=== PATIENT | female | born 1950 | race Caucasian/White ===

== ENCOUNTER 2016-02-29 15:22 | Inpatient (IN) | payer MEDICARE ==
[2016-02-29] MEDS ORDERED: ASPIRIN 81 MG CHEW PO STA (16:27)
[2016-02-29] MEDS ORDERED: NITROGLYCERIN OINT 1 INCH/GM PACKET TOPICAL STA (16:27)
[2016-02-29] MEDS ORDERED: PANTOPRAZOLE 40 MG/10 ML VIAL IVP STA (16:28)
[2016-02-29 17:04] LABS: Basophils # (A) 0.1 k/uL (0-0.2); Basophils % (A) 1 %; CH 30.8; Eosinophils # (A) 0.1 k/uL (0-0.7); Eosinophils % (A) 1 %; HCT 44.4 % (34.0-46.0); HDW 2.27; HGB 14.4 gm/dL (11.4-16.0); Luc % (Auto) 1; Lymphocytes # (A) 2.3 k/uL (1.0-4.8); Lymphocytes % (A) 25 %; MCH 30.4 pg (25.0-35.0); MCHC 32.5 g/dL (31.0-37.0); MCV 93.7 fL (80.0-100.0); Mean Platelet Volume 7.8; Monocytes # (A) 0.5 k/uL (0-1.0); Monocytes % (A) 5 %; Neutrophils # (A) 6.2 k/uL (1.3-7.7); Neutrophils % (A) 67 %; RBC 4.74 m/uL (3.80-5.40); RDW 13.4 % (11.5-15.5); WBC 9.2 k/uL (3.8-10.6)
[2016-02-29 17:15] LABS: ALT 31 U/L (9-52); AST 22 U/L (14-36); Alkaline Phosphatase 93 U/L (38-126); Anion Gap 14 mmol/L; Blood Urea Nitrogen 14 mg/dL (7-17); Calcium 9.8 mg/dL (8.4-10.2); Carbon Dioxide 25 mmol/L (22-30); Chloride 103 mmol/L (98-107); Glucose 94 mg/dL (74-99); Magnesium 1.9 mg/dL (1.6-2.3); Non-African American GFR(MDRD) >60 (>60 ml/min/1.73 sqM); Potassium 4.4 mmol/L (3.5-5.1); Sodium 142 mmol/L (137-145); Total Bilirubin 0.8 mg/dL (0.2-1.3); Total Protein 8.1 g/dL (6.3-8.2)
[2016-02-29 17:16] LABS: INR 1.1 (<1.1); Partial Thromboplastin Time 24.1 sec (22.0-30.0); Prothrombin Time 11.1 sec (9.0-12.0)
--- NOTE | 2016-02-29 17:22 | XR ---
EXAMINATION TYPE: XR chest 2V DATE OF EXAM: 02/29/2016 5:16 PM COMPARISON: NONE HISTORY: Chest pain TECHNIQUE: Frontal and lateral views of the chest are obtained. FINDINGS: Heart and mediastinum are within normal limits. Lungs are clear. Costophrenic angles are c lear. There are no hilar masses. There are chest leads. Bony thorax is intact. IMPRESSION: Normal chest.
[2016-02-29 17:25] LABS: Creatine Kinase 86 U/L (30-135)
[2016-02-29 17:37] LABS: Creatine Kinase MB 0.9 ng/mL (0.0-2.4); Troponin I <0.012 ng/mL (0.000-0.034)
--- NOTE | 2016-02-29 18:58 | ED ---
Chest Pain HPI - General Chief Complaint: Chest Pain Stated Complaint: Chest Pain Time Seen by Provider: 02/29/16 16:22 Source: patient Mode of arrival: wheelchair - History of Present Illness Initial Comments: This 65-year-old white female presents complaining of chest pain which is been present intermittently for one week. She describes as a pinprick like, heaviness in someone sitting on her chest type of sensation. It will last a few seconds up to 10 minutes and is nonexertional in nature. It will occasionally radiate to her left arm. She has had occasional mild shortness of breath. She denies any palpitations diaphoresis. She denies any leg pain or swelling, or history of DVT or PE. She was seen by her primary care physician today and sent in for some changes on her EKG and high blood pressure associated with the chest pain. She states that she has an occasional problem with swallowing with a history of gastroesophageal reflux disease. She has a history of hypertension in the past but is not on any medications currently for this. She does have a strong family history of cardiac disease. Her last stress test was approximately 3 years ago. No other complaints or modifying factors. - Related Data Home Medications Medication Instructions Recorded Confirmed Aspirin 325 - 650 mg PO DAILY PRN 06/11/13 02/29/16 Omeprazole [PriLOSEC] 20 mg PO DAILY PRN 02/29/16 02/29/16 Allergies Allergy/AdvReac Type Severity Reaction Status Date / Time alcohol Allergy Severe Swelling Verified 02/29/16 17:29 fentanyl Allergy Severe Nausea & Verified 02/29/16 17:29 Vomiting clarithromycin [From Biaxin] Allergy Unknown Unknown Verified 02/29/16 17:32 diazepam [From Valium] Allergy Unknown Unknown Verified 02/29/16 17:29 ANTIBIOTIC (UNKNOWN) Allergy Unknown Unknown Uncoded 02/29/16 17:32 EKG electrodes AdvReac Intermediate Rash/Hives Uncoded 06/11/13 08:40 Review of Systems ROS Statement: Those systems with pertinent positive or pertinent negative responses have been documented in the HPI. ROS Other: All systems not noted in ROS Statement are negative. Past Medical History Past Medical History: Chest Pain / Angina, GERD/Reflux, Hypertension Additional Past Medical History / Comment(s): palpitations, hx ulcer and hiatal hernia years ago History of Any Multi-Drug Resistant Organisms: None Reported Past Surgical History: Cholecystectomy Past Anesthesia/Blood Transfusion Reactions: Family History of Problems w/ Anesthesia, Postoperative Nausea & Vomiting (PONV) Past Psychological History: No Psychological Hx Reported Smoking Status: Former smoker Past Alcohol Use History: None Reported Past Drug Use History: None Reported General Exam - General Exam Comments Initial Comments: GENERAL: The patient is well nourished and well hydrated. VITAL SIGNS: Heart rate, blood pressure, respiratory rate reviewed as recorded in nurse's notes. EYES: Pupils are round and reactive. Extraocular movements are intact. No conjunctival / lid redness or swelling. ENT: No external evidence of injury, swelling, or ecchymosis. Airway is patent. Throat is clear. NECK: Nontender. No swelling or evidence of injury. No subcutaneous emphysema. Trachea is midline. No thyroid mass. HEART: Regular rate and rhythm. Good peripheral pulses. LUNGS/CHEST: Breath sounds clear and equal bilaterally. No rales, rhonchi, or wheezes. No ecchymosis, subcutaneous emphysema, or tenderness. ABDOMEN: Abdomen soft without tenderness. No palpable masses or organomegaly. No peritoneal signs. No abdominal wall swelling or ecchymosis. EXTREMITIES: No extremity tenderness. Normal muscle tone and function. No thoracolumbar tenderness. NEUROLOGIC: Sensation is grossly intact. Cranial nerve exam reveals face is symmetrical, tongue is midline, speech is clear. SKIN: No abrasions or ecchymosis is noted. No induration or masses noted. PSYCHIATRIC: Alert and oriented. Appropriate behavior and judgment. Course Vital Signs 02/29/16 02/29/16 15:48 18:53 Temperature 98.5 F Pulse Rate 67 60 Respiratory 18 20 Rate Blood Pressure 190/83 141/63 O2 Sat by Pulse 100 99 Oximetry Chest Pain MDM - MDM The patient was seen and examined. All diagnostics were reviewed. The EKG shows a normal sinus rhythm at a rate of 68. There is no acute ST-T wave changes identified. The AK interval is 164, QRS duration is 94, QTC intervals 440. A chest x-ray does not show any acute process per radiology. The laboratory is all essentially within normal limits. The patient is in no distress on recheck. She receives aspirin as well as some Nitropaste. It is felt as though she benefit from admission to the hospital for further Cardiologic workup and to rule out acute coronary syndrome. She is agreeable. Case will be discussed with internal medicine in the near future and patient will be admitted to observation. Disposition Clinical Impression: Chest pain, Unstable angina pectoris, Hypertension Disposition: ADMITTED IP TO THIS HOSP Condition: Good Time of Disposition: 18:58 Decision Date: 02/29/16 Decision Time: 18:58
[2016-02-29] MEDS ORDERED: HEPARIN SODIUM,PORCINE 5,000 UNIT/ML 1 ML VIAL IV PRN (18:59)
[2016-02-29] MEDS ORDERED: HEPARIN SODIUM,PORCINE 5,000 UNIT/ML 1 ML VIAL IV ONE (18:59)
[2016-02-29] MEDS ORDERED: NITROGLYCERIN SL TABS 0.4 MG TAB SUBLINGUAL PRN (18:59)
[2016-02-29] MEDS ORDERED: HEPARIN SODIUM,PORCINE/D5W PMX 25,000 UNIT in DEXTROSE/WATER 1 500ML.BAG IV SCH (19:00)
[2016-02-29] MEDS: METOPROLOL TARTRATE 25 MG TAB PO SCH (20:39)
[2016-02-29 21:40] VITALS: RESP 16
[2016-02-29 23:23] LABS: Creatine Kinase 70 U/L (30-135)
[2016-02-29] MEDS: NITROGLYCERIN OINT 1 INCH/GM PACKET TOPICAL SCH (23:25)
[2016-02-29 23:36] LABS: Creatine Kinase MB 0.6 ng/mL (0.0-2.4); Troponin I <0.012 ng/mL (0.000-0.034)
[2016-03-01 05:36] LABS: Mean Platelet Volume 7.7
[2016-03-01 05:56] LABS: Creatine Kinase 68 U/L (30-135)
[2016-03-01] MEDS: NITROGLYCERIN OINT 1 INCH/GM PACKET TOPICAL SCH (06:02)
[2016-03-01 06:07] LABS: Cholesterol 167 mg/dL (<200); HDL Cholesterol 56 mg/dL (40-60); Triglycerides 48 mg/dL (<150)
[2016-03-01 06:09] LABS: Creatine Kinase MB 0.7 ng/mL (0.0-2.4); Troponin I <0.012 ng/mL (0.000-0.034)
[2016-03-01] MEDS ORDERED: ASPIRIN 325 MG TAB PO SCH (09:00)
[2016-03-01] MEDS ORDERED: LOSARTAN 50 MG TAB PO SCH ×2 (10:30→11:00)
--- NOTE | 2016-03-01 10:33 | ECHOF ---
Referral Reason: MEASUREMENTS -------- HEIGHT: 160.0 cm WEIGHT: 77.1 kg BP: 118/61 RVIDd: 2.9 cm (< 3.3) IVSd: 1.0 cm (0.6 - 1.1) LVIDd: 4.7 cm (3.9 - 5.3) LVPWd: 1.0 cm (0.6 - 1.1) IVSs: 1.7 cm LVIDs: 2.9 cm LVPWs: 1.4 cm LA Diam: 3.1 cm (2.7 - 3.8) LAESV Index (A-L): 26.74 ml/m Ao Diam: 2.9 cm (2.0 - 3.7) AV Cusp: 2.2 cm (1.5 - 2.6) MV EXCURSION: 12.972 mm (> 18.000) MV EF SLOPE: 65 mm/s (70 - 150) MV E Kristofer: 0.93 m/s MV DecT: 254 ms MV A Kristofer: 0.85 m/s MV E/A Ratio: 1.10 FINDINGS -------- Sinus rhythm. This was a technically good study. The left ventricular size is normal. Left ventricular wall thickness is normal. Overall left ventricular systolic function is normal with, an EF between 60 - 65 %. The right ventricle is normal in size and function. The left atrium is normal in size. Normal LA size by volume 22+/-6 ml/m2. The right atrium is normal in size. The aortic valve is trileaflet and appears structurally normal. There is trace mitral regurgitation. The tricuspid valve appears structurally normal. No regurgitation noted The pulmonic valve is normal. There is no pulmonic regurgitation present. The aortic root size is normal. Normal inferior vena cava with normal inspiratory collapse consistent with estimated right atrial pressure of 5 mmHg. There is no pericardial effusion. CONCLUSIONS -------- 1. Sinus rhythm. 2. There is trace mitral regurgitation. 3. The tricuspid valve appears structurally normal. 4. The pulmonic valve is normal. 5. The aortic root size is normal. 6. Normal inferior vena cava with normal inspiratory collapse consistent with estimated right atrial pressure of 5 mmHg. 7. There is no pericardial effusion. 8. This was a technically good study. 9. The left ventricular size is normal. 10. Left ventricular wall thickness is normal. 11. Overall left ventricular systolic function is normal with, an EF between 60 - 65 %. 12. The right ventricle is normal in size and function. 13. Normal LA size by volume 22+/-6 ml/m2. 14. The right atrium is normal in size. 15. The aortic valve is trileaflet and appears structurally normal. LEAF SIZE PICKER: Fany Carmen RDCS
--- NOTE | 2016-03-01 10:54 | CONS ---
DATE OF CONSULTATION: Savanna Alaniz is a 65-year-old female who presents with ( ) chest discomfort in the left pectoral area and then radiating down the left arm yesterday. She was complaining of blurring of vision. She noted her blood pressure was high and was quite high in her dentist's office. Upon admission, her first blood pressure was elevated at 190 mmHg, subsequent blood pressures have been within normal limits. She is denying any undue shortness of breath. No heaviness or pressure. She is pain-free at this time. REVIEW OF SYSTEMS: No fever, chills, or rigors. No cough or expectoration. No nausea, vomiting or diarrhea. No hematuria, dysuria. No strokes or seizures. No skin lesions or musculoskeletal complaints. Past history of hypertension, no history of coronary artery disease. No diabetes. SOCIAL HISTORY: She is a former smoker. She also has a history of hiatus hernia. She has a history of palpitations. Past surgical history of cholecystectomy. On examination, her first blood pressure 190/83 mmHg, the next blood pressure of 141/63 mmHg, her pulse is normal and afebrile. Head and neck examination are normal. No JVD, thyromegaly, or carotid bruits. Heart sounds were normal. Lungs are clear to auscultation. Extremities are warm. No edema. A 12-lead ECG shows sinus mechanism with normal ST segments. Cardiac enzymes are normal. CBC is normal. The triglycerides are 48, total cholesterol 167, LDL 101 and HDL 56. IMPRESSION: 1. A 65-year-old female presenting with atypical chest discomfort and blurring of vision with elevated blood pressures noted as an outpatient in the doctor's office as well as upon initial admission to the ER. She was on hydrochlorothiazide many years back, but she has stopped this. 2. Past history of smoking. 3. History of palpitations but no recent palpitations. SUGGEST: Start losartan 50 mg p.o. daily. Have the patient go home in the next 24 hours. I would hold off on taking aspirin until her blood pressure is well-controlled. I will also check a TSH level.
[2016-03-01] MEDS: METOPROLOL TARTRATE 25 MG TAB PO SCH (10:59)
[2016-03-01] MEDS: LOSARTAN 25 MG TAB PO SCH (11:21)
--- NOTE | 2016-03-01 12:19 | P.HPIM ---
History of Present Illness Chief Complaint: Chest pain This 65-year-old white female presents complaining of chest pain which is been present intermittently for one week. She describes as a pinprick like, heaviness in someone sitting on her chest type of sensation. It will last a few seconds up to 10 minutes and is nonexertional in nature. It will occasionally radiate to her left arm. She has had occasional mild shortness of breath. She denies any palpitations diaphoresis. She denies any leg pain or swelling, or history of DVT or PE. She was seen by her primary care physician today and sent in for some changes on her EKG and high blood pressure associated with the chest pain. She states that she has an occasional problem with swallowing with a history of gastroesophageal reflux disease. She has a history of hypertension in the past but is not on any medications currently for this. She does have a strong family history of cardiac disease. Her last stress test was approximately 3 years ago. No other complaints or modifying factors. Review of Systems Review of system: 14 points review of systems were obtained and were negative except to what were mentioned in the HPI. Past Medical History Past Medical History: Chest Pain / Angina, GERD/Reflux, Hypertension, Osteoarthritis (OA) Additional Past Medical History / Comment(s): palpitations, hx ulcer 20 YEARS AGO and hiatal hernia,MIGRAINES, 2 PERMANENT BRIDGES, PT STATED HAS BEEN ON BP MEDS FSINCE 2014, UTI, URINARY INCONT,CHRONIC BACK PAIN, DIVERTICULITIS, THYROID NODULE, AND THINKS SHE HAD "SVT" IN PAST. History of Any Multi-Drug Resistant Organisms: None Reported Past Surgical History: Cholecystectomy Additional Past Surgical History / Comment(s): EGD/COLONOSCOPY,PAIN CLINIC PROCEDURES, THYROID BX-NEG Past Anesthesia/Blood Transfusion Reactions: Family History of Problems w/ Anesthesia, Postoperative Nausea & Vomiting (PONV) Past Psychological History: No Psychological Hx Reported Smoking Status: Former smoker Past Alcohol Use History: None Reported Additional Past Alcohol Use History / Comment(s): STARTED SMOKING 1985, SMOKED 1 /2 PPD, QUIT 1991 Past Drug Use History: None Reported - Past Family History Mother Family Medical History: Coronary Artery Disease (CAD), Hypertension, Myocardial Infarction (SD) Additional Family Medical History / Comment(s): 3 CARDAIC STENTS, TB CHILD Father Family Medical History: Cancer, Coronary Artery Disease (CAD), Prostate Disorder Additional Family Medical History / Comment(s): PROSTATE CANCER, SKIN CANCER, TRIPLE CABG Medications and Allergies Home Medications Medication Instructions Recorded Confirmed Type Aspirin 325 - 650 mg PO DAILY PRN 06/11/13 02/29/16 History Omeprazole [PriLOSEC] 20 mg PO DAILY PRN 02/29/16 02/29/16 History Allergies Allergy/AdvReac Type Severity Reaction Status Date / Time alcohol Allergy Severe Swelling Verified 02/29/16 17:29 fentanyl Allergy Severe Nausea & Verified 02/29/16 17:29 Vomiting clarithromycin [From Biaxin] Allergy Unknown Unknown Verified 02/29/16 17:32 diazepam [From Valium] Allergy Unknown Unknown Verified 02/29/16 17:29 ANTIBIOTIC (UNKNOWN) Allergy Unknown Unknown Uncoded 02/29/16 17:32 EKG electrodes AdvReac Intermediate Rash/Hives Uncoded 06/11/13 08:40 Physical Exam Vitals: Vital Signs Temp Pulse Pulse Resp BP BP Pulse Ox 03/01/16 11:48 97.9 F 70 16 145/87 98 03/01/16 07:54 98 F 67 16 128/62 97 03/01/16 04:00 97.9 F 59 L 16 118/61 97 03/01/16 00:00 98.0 F 68 16 119/54 94 L 02/29/16 21:00 97.8 F 77 16 123/62 96 02/29/16 20:38 97.8 F 96 18 122/65 95 02/29/16 20:06 91 18 114/58 99 Intake and Output 02/29/16 03/01/16 03/01/16 22:59 06:59 14:59 Other: # Voids 1 General: The patient is awake and alert, in no distress, and does not appear acutely ill. Eye: extra-ocular movements are intact; there is normal conjunctiva bilaterally. . Neck: The neck is supple, there is no tenderness or JVD. Cardiovascular: Normal S1-S2, no S3-S4, no murmurs. Respiratory: Lungs clear to auscultation bilaterally with no wheezes rhonchi or rales. Gastrointestinal: Abdomen is soft, nontender, nondistended, with no organomegaly. . Musculoskeletal: Normal ROM, no tenderness, There is no pedal edema. Neurological: There are no obvious motor or sensory deficits. Speech is normal. Skin: Skin is warm and dry and no rashes or lesions are noted. Results CBC & Chem 7: 03/01/16 05:24 02/29/16 16:50 Labs: Abnormal Lab Results - Last 24 Hours (Table) 03/01/16 03/01/16 Range/Units 02:10 05:28 APTT 59.2 H (22.0-30.0) sec LDL Cholesterol, Calc 101 H (0-99) mg/dL Thrombosis Risk Factor Assmnt - Choose All That Apply Each Risk Factor Represents 2 Points: Age 61-74 years Thrombosis Risk Factor Assessment Total Risk Factor Score: 2 Thrombosis Risk Factor Assessment Level: Low Risk Assessment and Plan Plan: 1. Chest pain: Twelve-lead EKG showed no acute ischemic changes. Serial troponins negative 3 sets. Patient was seen and evaluated by cardiology awaiting further recommendations. She is chest pain-free right now. She is on IV heparin. 2. History of essential hypertension not on any medication at home. Started on Cozaar by cardiology 3. GERD: On omeprazole at home We will continue telemetry monitoring. Awaiting cardiology recommendations.
[2016-03-01] MEDS: PANTOPRAZOLE 40 MG/10 ML VIAL IVP SCH (16:42)
[2016-03-01] MEDS ORDERED: ACETAMINOPHEN TAB 325 MG TAB PO PRN (17:30)
--- NOTE | 2016-03-02 08:38 | PN ---
DATE OF SERVICE: 03/02/2016 Savanna Alaniz is doing well. Her blood pressure is now better controlled on losartan 25 mg p.o. daily. Yesterday her blood pressure was elevated upon admission. Her 2-D echo shows preserved LV size and systolic function. Cardiac enzymes have been normal x3. Triglycerides 48, total are 167, LDL 101 and HDL 57. Electrolytes are normal. On examination, her blood pressure today is 115/59 mmHg, heart rate is in the 70s. Head and neck examination is normal. Heart sounds are normal. Lungs are clear on auscultation. Extremities are warm. No edema. IMPRESSION: 1. Uncontrolled hypertension. Better controlled now with losartan 50 mg daily. 2. Mild dyslipidemia. 3. Cardiovascular risk of about 7.7%, with calculation based on systolic blood pressure of 145 mmHg systolic. SUGGEST: 1. Home blood pressure monitoring. 2. Avoid high salt products in the diet. 3. Losartan 25 mg p.o. daily. 4. Start Pravachol 20 mg p.o. daily. 5. Follow up with Dr. Watkins in about 2 weeks.
[2016-03-02] MEDS: LOSARTAN 25 MG TAB PO SCH (09:13)
[2016-03-02] MEDS: PANTOPRAZOLE 40 MG/10 ML VIAL IVP SCH (09:13)
[2016-03-02 09:19] VITALS: BP 131/81; PULSE 78; TEMP 98.4
--- NOTE | 2016-03-02 11:13 | P.DS ---
Providers Date of admission: 03/01/16 17:47 Expected date of discharge: 03/02/16 Attending physician: Nelida Pickard Consults: Dr. Watkins Primary care physician: Dot Hendrickson Hospital Course: Discharge diagnosis 1. Chest pain: Twelve-lead EKG showed no acute ischemic changes. Serial troponins negative 3 sets. MT ruled out. Possibly related to high blood pressure. 2. History of essential hypertension not on any medication at home. Accelerated hypertension on presentation . Started on Cozaar by cardiology 3. GERD: On omeprazole at home 1. Upper respiratory infection improving Hospital course This 65-year-old white female presents complaining of chest pain which is been present intermittently for one week. She describes as a pinprick like, heaviness in someone sitting on her chest type of sensation. It will last a few seconds up to 10 minutes and is nonexertional in nature. It will occasionally radiate to her left arm. She has had occasional mild shortness of breath. She denies any palpitations diaphoresis. She denies any leg pain or swelling, or history of DVT or PE. She was seen by her primary care physician today and sent in for some changes on her EKG and high blood pressure associated with the chest pain. She states that she has an occasional problem with swallowing with a history of gastroesophageal reflux disease. She has a history of hypertension in the past but is not on any medications currently for this. She does have a strong family history of cardiac disease. Her last stress test was approximately 3 years ago. Patient's symptoms have improved. She was evaluated by cardiology they added losartan 25 mg daily during this admission. Also added Pravachol 20 mg daily with the due to cardiovascular risk of 7.7%. Patient's symptoms have improved and she is stable for discharge. Recommend that she continues on the omeprazole at home. Also GI she has been dealing with an upper respiratory infection for the past week. These symptoms are improving. chest x-ray was negative for any pneumonia. Patient is medically stable for discharge. She'll be following up with cardiology and her PCP in the office. Patient Condition at Discharge: Stable Plan - Discharge Summary New Discharge Prescriptions: Losartan [Cozaar] 25 mg PO DAILY #30 tab Pravastatin Sodium [Pravachol] 20 mg PO DAILY #30 tab Discharge Medication List Aspirin 325 - 650 mg PO DAILY PRN 05/07/14 [History] Omeprazole [PriLOSEC] 20 mg PO DAILY PRN 02/29/16 [History] Losartan [Cozaar] 25 mg PO DAILY #30 tab 03/02/16 [Rx] Pravastatin Sodium [Pravachol] 20 mg PO DAILY #30 tab 03/02/16 [Rx] Follow up Appointment(s)/Referral(s): Castro Watkins MD [STAFF PHYSICIAN] - 2 Weeks Dot Hendrickson DO [Primary Care Provider] - 1 Week Activity/Diet/Wound Care/Special Instructions: Diet: cardiac Activity: as tolerated Discharge Disposition: HOME SELF-CARE
[2016-03-03] MEDS ORDERED: PANTOPRAZOLE 40 MG TABLET PO SCH (07:30)
== END 2016-03-02 13:30 | disposition home or self-care (01) | DRG 313 ==
LOC: EC 15:22 → 3OBS 18:59 → OBSVTOIN 03-01 17:47
PROVIDERS: ADMIT Internal Medicine; ATTEND Internal Medicine
DX: R07.9 Chest pain, unspecified (principal); I10 Essential (primary) hypertension; E78.5 Hyperlipidemia, unspecified; J06.9 Acute upper respiratory infection, unspecified; K21.9 Gastro-esophageal reflux disease without esophagitis; E04.1 Nontoxic single thyroid nodule; G43.909 Migraine, unspecified, not intractable, without status migrainosus; G89.29 Other chronic pain; K44.9 Diaphragmatic hernia without obstruction or gangrene; M19.90 Unspecified osteoarthritis, unspecified site; R32 Unspecified urinary incontinence; M54.9 Dorsalgia, unspecified; K57.90 Diverticulosis of intestine, part unspecified, without perforation or abscess without bleeding; H53.8 Other visual disturbances; Z87.891 Personal history of nicotine dependence; Z79.82 Long term (current) use of aspirin; Z88.1 Allergy status to other antibiotic agents; Z88.8 Allergy status to other drugs, medicaments and biological substances; Z82.49 Family history of ischemic heart disease and other diseases of the circulatory system
CPT/HCPCS: 36415; 71020; 80053; 80061; 82550; 82553; 83735; 84484; 85025; 85049; 85610; 85730; 93005; 93306; 96365; 96366; 96375; 96376; 99285

== ENCOUNTER → 2016-05-18 | Outpatient (CLI) | payer MEDICARE ==
--- NOTE | 2016-05-18 14:21 | MM ---
Reason for exam: clinical finding. Last mammogram was performed 3 years and 5 months ago. History: Patient is postmenopausal. Benign right US cyst aspiration of the right breast, March 02, 2006. Indicated problem(s): non-bloody discharge in both breasts. Physical Findings: Nurse did not find any significant physical abnormalities on exam. MG 3D Diag Mammo W/Cad GLO Bilateral CC and MLO view(s) were taken. Prior study comparison: December 13, 2012, [facility] DIGITAL LEFT BREAST MAMMOGRAM w/CAD. December 11, 2012, bilateral digital screening mammo w/CAD. The breast tissue is heterogeneously dense. This may lower the sensitivity of mammography. Benign calcifications. There is no discrete abnormality. No significant new findings when compared with previous films. These results were verbally communicated with the patient and result sheet given to the patient on 05/18/16. ASSESSMENT: Benign, BI-RAD 2 RECOMMENDATION: Routine screening mammogram of both breasts in 1 year. Manage patient on a clinical basis.
== END ==
LOC: RADMAMWWP 13:15
PROVIDERS: ATTEND Family Medicine
DX: N64.52 Nipple discharge (principal); N64.4 Mastodynia; N60.09 Solitary cyst of unspecified breast
CPT/HCPCS: G0204; G0279

== ENCOUNTER → 2017-03-19 | Outpatient (CLI) | payer MEDICARE ==
--- NOTE | 2017-03-19 17:50 | US ---
EXAMINATION TYPE: US thyroid st tissue head/neck DATE OF EXAM: 03/19/2017 COMPARISON: [facility]NA dated 04/28/2013 CLINICAL HISTORY: 66-year-old female e04.1 thyroid nodule. Thyroid nodules, weight gain, difficulty s wallowing TECHNIQUE: Multiple sonographic images of the thyroid gland are obtained. FINDINGS: GLAND SIZE: Right Lobe: 4.1 x 2.1 x 2.0 cm Overall Parenchyma: homogenous Left Lobe: 3.7 x 1.3 x 1.0 cm Overall Parenchyma: homogeneous Isthmus Thickness: 0.3 cm NODULES RIGHT: # of nodules measured on right: 1 1. 2.0 X 1.3 x 1.8 cm isoechoic solid nodule at the mid pole with well-defined margins. This nodule is wider than tall and shows intranodular vascularity. Prior size: 1.5cm on previous FNA LEFT: # of nodules measured on left: 1 1. 0.4 X 0.3 x 0.4 cm hypoechoic solid nodule at the mid pole with well-defined margins. This nodul e is wider than tall and shows intranodular vascularity. Prior size: no previous ISTHMUS: # of nodules measured in the isthmus: 0 Bilateral neck scanned, left lateral neck: Scattered lymph nodes, largest measuring 2.2 x 0.6 x 1.2 c m. IMPRESSION: 1. A solid nodule, one on each side, subcentimeter on the left and large measuring 2 cm on the right. This is in comparison to 1.5 cm on the [facility]NA exam dated 04/28/2013. Correlate with previous cytology re sults. Follow-up as indicated. 2. Some scattered prominent but nonenlarged left-sided cervical lymph nodes.
== END | disposition home or self-care (01) ==
LOC: RADUSWWP 14:40
PROVIDERS: ATTEND Family Medicine
DX: E04.2 Nontoxic multinodular goiter (principal)
CPT/HCPCS: 76536

== ENCOUNTER → 2017-09-07 | Outpatient (CLI) | payer MEDICARE ==
--- NOTE | 2017-09-10 08:29 | MM ---
Reason for exam: screening (asymptomatic). Last mammogram was performed 1 year and 4 months ago. History: Patient is postmenopausal. Benign right US cyst aspiration of the right breast, March 02, 2006. Physical Findings: A clinical breast exam by your physician is recommended on an annual basis and results should be correlated with mammographic findings. MG Screening Mammo w CAD Bilateral CC and MLO view(s) were taken. XCCL view(s) were taken of the left breast. Prior study comparison: May 18, 2016, bilateral MG 3d diag mammo w/cad GLO. December 13, 2012, [facility] DIGITAL LEFT BREAST MAMMOGRAM w/CAD. The breast tissue is heterogeneously dense. This may lower the sensitivity of mammography. Benign appearing bilateral calcifications. No suspicious abnormality. No significant changes when compared with prior studies. ASSESSMENT: Benign, BI-RAD 2 RECOMMENDATION: Routine screening mammogram of both breasts in 1 year.
== END | disposition home or self-care (01) ==
LOC: RADMAMWWP 09:29
PROVIDERS: ATTEND Family Medicine
DX: Z12.31 Encounter for screening mammogram for malignant neoplasm of breast (principal)
CPT/HCPCS: 77067

== ENCOUNTER → 2017-12-07 | Outpatient (CLI) | payer MEDICARE ==
--- NOTE | 2017-12-07 15:01 | CT ---
EXAMINATION TYPE: CT abdomen w con DATE OF EXAM: 12/07/2017 HISTORY: Stomach pains CT DLP: 848mGycm Automated Exposure Control for Dose Reduction was Utilized. CONTRAST: CT scan of the abdomen is performed with IV Contrast, patient injected with 80 mL of Isovue 300. COMPARISON: 08/03/2014. FINDINGS: LUNG BASES: Small hiatal hernia is seen in the posterior mediastinum. Lung bases are unremarkable. LIVER/GB: Solitary subcentimeter hypoattenuated hepatic lesion is seen near the dome of the diaphragm , unchanged from the exam of 08/03/2014 and therefore likely represents a small cyst. Gallbladder surg ically absent. PANCREAS: No significant abnormality is seen. SPLEEN: Benign parenchymal scattered calcified granulomas are noted. No splenomegaly. ADRENALS: No significant abnormality is seen. KIDNEYS: Left renal sinus cysts are seen. No hydronephrosis of either kidney. Kidneys enhance and exc rete symmetrically. BOWEL: Moderate amount of colonic stool is seen and contrast does not extend into the bowel, somewhat limiting evaluation. However no dilated large or small bowel are seen. LYMPH NODES: No greater than 1cm abdominal or pelvic lymph nodes are appreciated. OSSEOUS STRUCTURES: There is grade 2 anterolisthesis of L5 on S1 from bilateral pars interarticularis defects. Mild degenerative changes of the thoracolumbar spine are more pronounced in the lower thora cic spine. IMPRESSION: 1. No acute intra-abdominal process. 2. Moderate burden retained colonic fecal debris. 3. Solitary hypoattenuated hepatic lesion is stable from the prior of 2014 likely representing a smal l cyst. 4. Small hiatal hernia.
== END ==
LOC: RADCTMAIN 12:16
PROVIDERS: ATTEND Family Medicine
DX: K76.9 Liver disease, unspecified (principal); K44.9 Diaphragmatic hernia without obstruction or gangrene
CPT/HCPCS: 74160; Q9967

== ENCOUNTER 2018-01-24 08:50 | Day surgery (SDC) | payer MEDICARE ==
[2018-01-22 10:46] VITALS: BMI 30.6
[~2018-01-24 08:50] MED LIST: LACTATED RINGERS 1,000 ML IV SCH
[2018-01-24] MEDS ORDERED: LIDOCAINE 1% 20 ML VIAL (10MG/ML) FOR IV START INTRADERMA ONE (08:57)
[2018-01-24 09:11] VITALS: TEMP 97.1
[2018-01-24] MEDS ORDERED: ONDANSETRON 4 MG/2 ML VIAL IVP ONE (09:17)
[2018-01-24] MEDS ORDERED: GLYCOPYRROLATE 0.2 MG/ML 2 ML VIAL ONE (09:52)
[2018-01-24] MEDS ORDERED: LIDOCAINE 1% INJ 10MG/ML (20 ML MDV) ONE (09:52)
[2018-01-24] MEDS ORDERED: PROPOFOL 10 MG/ML 20 ML VIAL IV ONE (09:52)
--- NOTE | 2018-01-24 10:40 | P.PCN ---
Date of Procedure: 01/24/18 Procedure(s) Performed: Procedure: 1. Esophagogastroduodenoscopy and biopsy. 2. Total colonoscopy. Preoperative diagnosis: Dysphagia and change in bowel habits. Postoperative diagnosis: 1. Hiatal hernia with no definite esophagitis or complicated reflux disease. 2. Mild gastritis and duodenitis. 3. Mild colon diverticulosis with no evidence of acute diverticulitis, strictures, polyps, cancer or colitis. Preparation: HalfLytely prep. Sedation: Was provided by anesthesia. Brief clinical history: The patient is a 67-year-old female who is scheduled for this evaluation because of history of dysphagia of around few months duration as well as history of chronic reflux symptoms. She had an upper endoscopy in June 2013 that showed small hiatal hernia, distal esophagitis and antral gastritis. In addition, the patient who normally is on the constipated side had a bout of diarrhea that lasted 2-3 weeks last month and CT of the abdomen did not show any significant pathology. This evaluation is to assess for complicated reflux disease, peptic ulcer disease or colonic pathology. Procedure: With the patient on her left lateral decubitus position and after informed consent and adequate sedation, I passed the Olympus-GIF 160 video upper endoscope through the cricopharyngeus down the esophagus. GE junction was around 36 cm from the incisors and there was a small sliding hiatal hernia. There was no definite esophagitis or complicated reflux disease. I note mild corrugations of the esophagus. The endoscope was then passed into the stomach which was insufflated with air and inspected in detail including the retroflex view in the cardia. There was some mottling and erythema in the antrum but no ulcers or erosions. Pyloric channel did not show any ulcers. Duodenal bulb, post bulbar area and descending duodenum showed minimal erythema and minimal friability with no ulcers or erosions. Because of her symptoms, I obtained biopsies from the duodenum, antrum and esophagus then the endoscope was withdrawn and I then proceeded to perform the colonoscopy. Perianal area did not show any fissures or fistulas. There were no masses felt on digital rectal examination. The Olympus CFH 190L video colonoscope was then inserted in the rectum in the usual fashion and advanced to the cecum. There was occasional small diverticular orifices seen scattered in the sigmoid and around the hepatic flexure and the right side but no evidence of acute diverticulitis or strictures. The mucosa appeared healthy. No polyps or tumors were seen. I retroflexed the endoscope in the rectum before the endoscope was withdrawn. The patient tolerated the procedure well. Plan: The patient was reassured. Will await biopsy results and I will keep you updated on her progress. I would suggest repeat colonoscopy in 10 years.
[2018-01-24 10:50] VITALS: BP 102/65; PULSE 75; RESP 16
== END 2018-01-24 11:31 | disposition home or self-care (01) ==
LOC: ORWHC2ENDO 08:50
DX: K29.50 Unspecified chronic gastritis without bleeding (principal); K21.0 Gastro-esophageal reflux disease with esophagitis; K29.80 Duodenitis without bleeding; K57.30 Diverticulosis of large intestine without perforation or abscess without bleeding; K44.9 Diaphragmatic hernia without obstruction or gangrene; Z88.5 Allergy status to narcotic agent; Z88.1 Allergy status to other antibiotic agents; Z88.8 Allergy status to other drugs, medicaments and biological substances; I10 Essential (primary) hypertension; Z79.82 Long term (current) use of aspirin; Z79.899 Other long term (current) drug therapy; M19.90 Unspecified osteoarthritis, unspecified site; G43.909 Migraine, unspecified, not intractable, without status migrainosus
CPT/HCPCS: 88305; 45378; 43239; J2405; J2001; J2704

== ENCOUNTER → 2018-06-19 | Outpatient (CLI) | payer MEDICARE ==
[2018-06-19 19:08] LABS: Albumin 4.4 g/dL (3.80-4.90); Albumin/Globulin Ratio 1.83 (1.60-3.17); Anion Gap 8.9 mmol/L (4.00-12.00); Calcium 9.7 mg/dL (8.7-10.3); Carbon Dioxide 27.1 mmol/L (21.6-31.8); Globulin 2.4 g/dL (1.6-3.3); LDL Cholesterol,Calculated 120.2 mg/dL (0.0-131.0); Potassium 4.9 mmol/L (3.5-5.5); Total Bilirubin 0.5 mg/dL (0.3-1.2); Total Protein 6.8 g/dL (6.2-8.2); VLDL Calculation 19.8 mg/dL (5.00-40.00)
== END | disposition home or self-care (01) ==
LOC: LABWHC1 14:51
PROVIDERS: ATTEND Internal Medicine Clinical Cardiac Electrophysiology
DX: E78.5 Hyperlipidemia, unspecified (principal); R07.9 Chest pain, unspecified
CPT/HCPCS: 36415; 80053; 80061; 84443